=== PATIENT | male | born 1985 | race Caucasian/White ===

== ENCOUNTER 2022-07-13 07:07 | Day surgery (SDC) | payer OTHER, SELFPAY ==
[2022-07-06 10:29] VITALS: BMI 29.7
--- NOTE | 2022-07-12 11:58 | P.CONAN_ITS ---
Documented by User: Aleksandra Sanders NP 07/12/22 11:58 HPI - Anesthesia Eval Consult details Narrative: 37yo M for Right Excision Lipoma of back [facility] Active Problems Active Problems: All Active Problems (Updated 07/05/22 @ 15:34 by Tegan Rosales RN) Lipoma of back (Acute) Past Medical History Medical History (Updated 07/13/22 @ 07:38 by Mary Smyth RN) Hypothyroid Thyroid storm Surgical History Surgical History H/O thyroidectomy Social History Social History Household Members: Significant Other Housing: House Alcohol intake: never Patient Tobacco Use Status: Former Tobacco user Quit Date: 2010 Use of substances other than those prescribed or required for medical reasons: Yes Substance Use Type: Marijuana Substance Use Type Other:: daily Are you DNR?: No Advance Directives: No Advance Directives Information Provided: Yes Meds Allergies Allergy/AdvReac Type Severity Reaction Status Date / Time No Known Allergies Allergy Verified 06/21/22 11:28 Home Medications Medication Instructions Recorded Confirmed Last Taken Type hydroxyzine pamoate 25 mg capsule 25 mg PO DAILY PRN Anxiety 06/21/22 06/21/22 07/13/22 History levothyroxine 137 mcg tablet 137 mcg PO DAILY 06/21/22 06/21/22 07/13/22 History (Levoxyl) Exam Exam Date and Time: July 12, 2022 1158 Height,Weight and Vital Signs: Height 5 ft 6 in Weight 83.461 kg Assessment and Plan Assessment Anesthesia Assessment: Chart Reviewed Documented by User: Vincenzo Ann MD 07/13/22 09:32 [facility] Past Medical History Medical History (Updated 07/13/22 @ 07:38 by Mary Smyth RN) Hypothyroid Thyroid storm Family History Family history of problems with anesthesia: No Surgical History Surgical History H/O thyroidectomy History of Problems with Anesthesia: No Social History Social History Household Members: Significant Other Housing: House Alcohol intake: never Patient Tobacco Use Status: Former Tobacco user Quit Date: 2010 Use of substances other than those prescribed or required for medical reasons: Yes Substance Use Type: Marijuana Substance Use Type Other:: daily Are you DNR?: No Advance Directives: No Advance Directives Information Provided: Yes Meds Allergies Allergy/AdvReac Type Severity Reaction Status Date / Time No Known Allergies Allergy Verified 06/21/22 11:28 Home Medications Medication Instructions Recorded Confirmed Last Taken Type hydroxyzine pamoate 25 mg capsule 25 mg PO DAILY PRN Anxiety 06/21/22 06/21/22 07/13/22 History levothyroxine 137 mcg tablet 137 mcg PO DAILY 06/21/22 06/21/22 07/13/22 History (Levoxyl) Exam Airway Mallampati Class: I TM Dist: >3cm Neck ROM: Full Loose/Missing/Broken Teeth: No Heart: ok Lungs: ok Assessment and Plan Final Anesthetic Review Family History of Problems with Anesthesia: No History of Problems with Anesthesia: No NPO: Yes ASA Class: II Final Preanesthetic Review: No Changes in Pt Med Stat, Meds/Allgs Chart Reviewed, Consent Obtained/Reviewed and Anes Risks/Benef Reviewed Patient Risk: Low Procedure Risk: Low Anesthetic Plan Anesthetic Plan: GA and Agree w/ Assess. and Plan Disposition: Standard PACU
[2022-07-13] VITALS (8 sets, daily range): BP systolic 114–138; BP diastolic 71–90; PULSE 57–72; RESP 16–18; TEMP 36.2–36.9; O2SAT 95–98; BMI 31.2
[2022-07-13] MEDS: Lactated Ringers 1,000 ML 100 ML IVCONT (07:53)
--- NOTE | 2022-07-13 09:12 | P.OP_ITS ---
Operative Note Operative Note Date of Service: 07/13/22 Narrative: Preop diagnosis: [Symptomatic lipoma, right flank] Postop diagnosis: [] Procedure: [] Surgeon: Jero Sam MD Assist: [none] Anesthesia: [General via LMA; local Ropivicaine, 0.5%] Estimated blood loss: [3cc] Specimen: [Right flank lipoma, 5x6cm] Intraoperative findings: [Lipoma was deep to the latissimus fascia and in the latissimus dorsi muscle require an intermediate closure of a 8 cm incision] Indications: [The patient is a 37-year-old gentleman with no significant past medical history who is a large symptomatic lipoma measuring approximately 5 x 6cm on his right flank and there have been no prior attempts at excision. Given that it is symptomatic and interfering with sleep and activity, I recommended excision. I reviewed the inherent risks of bleeding, infection, recurrence, seroma and other complications that could require another procedure. The option of seeing a cosmetic surgeon for consideration of liposuction was also reviewed and declined by the patient patient seemed understand his options and wanted to proceed.] Procedure: [The patient was identified in preoperative holding area by myself in the operative site marked by myself. He voided his urinary bladder radiation therapy technologist, receive sequential compression stockings and Ancef, 2 g. He was brought into the OR operating suite and placed prone on the table and after induction, general anesthesia via LMA was provided. The operative site was widely prepped and draped in the usual manner for surgery using chlorhexidine. An appropriate timeout confirming the lipoma and the side and procedure was performed. Preemptive local was infiltrated into the skin and subcutaneous tissues and a transverse 8 cm incision made sharply and carried into the subcutaneous tissues using electrocautery for hemostasis. The latissimus muscle was identified and the lipoma was deep to the fascia. Given this, the latissimus fascia was opened and the lipoma clearly demonstrated itself around the latissimus muscle fibers. The lipoma was extirpated and sent for permanent section. Hemostasis was obtained with electrocautery and the pocket closed using loose 2 0 Polysorb sutures to approximate the muscle. The fascia was then closed with interrupted 2-0 Polysorb sutures, deep dermal sutures of 3-0 Polysorb and 4-0 Monocryl subcuticular sutures completed the closure. The area was then washed and dried, Mastisol and Steri-Strips applied followed by sterile dressing. Patient tolerated the procedure well and was sent extubated the recovery in stable condition, all sponge instrument counts were correct. At the patient's request, I contacted his girlfriend Trinidad at [phone] and apprised her of the operation, pain management and instructions. Her questions seemed to be satisfactorily answered.]
--- NOTE | 2022-07-13 09:12 | MHC.SHP ---
Pre-Procedural Eval Section A Date of Service: 07/13/22 The patient is an INPATIENT: No The History & Physical has been completed within 30 days and I have reviewed it.: Yes Section B Chief Complaint: Benign lipomatous neoplasm of skin Allergies: Allergies Allergy/AdvReac Type Severity Reaction Status Date / Time No Known Allergies Allergy Verified 06/21/22 11:28 Plan I have reviewed the history and physical and performed a pertinent physical examination on my patient. No changes have occurred unless specified.
== END 2022-07-13 12:19 | disposition home or self-care (01) ==
LOC: HO.SSS 07:08
PROVIDERS: PCP Student in an Organized Health Care Education/Training Program; Visit Provider Surgery
PROC: (CPT 21933; principal; 2022-07-13 08:40)
DX: D17.1 Benign lipomatous neoplasm of skin and subcutaneous tissue of trunk (principal); E89.0 Postprocedural hypothyroidism; Z79.899 Other long term (current) drug therapy; Z87.891 Personal history of nicotine dependence; F12.90 Cannabis use, unspecified, uncomplicated
CPT/HCPCS: 21933; 88304; J0690; J1100; J1885; J2250; J2405; J2795; J3010

== ENCOUNTER 2023-08-16 10:31 | Outpatient (REF) | payer OTHER, SELFPAY ==
[2023-08-16 14:52] LABS: Alanine Aminotransferase 29 U/L (0-40); Albumin Level 4.4 g/dL (3.5-5.0); Alkaline Phosphatase 65 U/L (39-117); Aspartate Amino Transferase 32 U/L (5-37); Bilirubin Direct 0.2 mg/dL (0.0-0.5); Bilirubin Total 0.6 mg/dL (0.0-1.0); Cholesterol 169 mg/dL (<200); HDL Cholesterol 41 mg/dL (>40); LDL Cholesterol Calculated 95 mg/dL (<100); Total Protein 7.5 g/dL (6.5-8.0); Triglycerides 165 mg/dL (<150)
[2023-08-16 15:08] LABS: Thyroid Stimulating Hormone 5.72 uIU/mL (0.32-4.0)
[2023-08-22 17:09] LABS: HIV RNA PCR Qn Copies Not Detected Copies/mL; HIV RNA PCR Qn Log Copies Not Detected Log cps/mL
== END 2023-08-16 10:32 | disposition home or self-care (01) ==
LOC: HO.CHCLDS 10:31
PROVIDERS: Visit Provider Student in an Organized Health Care Education/Training Program
DX: Z00.00 Encounter for general adult medical examination without abnormal findings (principal); E05.00 Thyrotoxicosis with diffuse goiter without thyrotoxic crisis or storm
CPT/HCPCS: 36415; 80061; 80076; 84443; 87536; 87900

== ENCOUNTER 2025-02-03 09:32 | Outpatient (REF) | payer OTHER, SELFPAY ==
--- OUTSIDE RECORDS SUMMARY | 2025-02-03 10:33 | XMS_ITS | Encounter Summary ---
Author Organization [employer] Address [address] [place] [address] [address] [place] [address] Care Team Providers Care Hospitality Director Name Role Phone Pia Clements MD Primary Care Provider [phone] Reason for Visit * Reason Onset Date Comments Nurse Triage 01/26/2025 Encounter Details Date Type Department Care Team ([facility] st Contact Info) Description 01/26/2025 Telephone [facility] [address] [place] [address] Pia Clements MD [address] [place] [address] Nurse Triage Social History Tobacco Use Types Packs/Day Years Used Date Smoking Tobacco: Never Smokeless Tobacco: Never Depression Answer Date Recorded Patient Health Questionnaire-9 Score 9 05/19/2024 Patient Health Questionnaire-9 Score 9 05/19/2024 Last PHQ-9: Questionnaire Data Not on file 0 05/19/2024 Housing Stability Answer Date Recorded What is your housing situation today? I have andry do 08/16/[address] you li ve. Do you have problems with any of the following? None of the above 08/16/2023 Food Insecurity Answer Date Recorded Within the past 12 months, y ou worried that your food would run out before you got money to buy more: Never True 08/16/2023 Within the past 12 months,th e food you bought just didn't last and you didn't have enough money to get more: Never True Transportation Answer Date Recorded In the past 12 months, has l ack of transportation kept you from medical appts, meetings, work or from getting things needed for daily living? No 08/16/2023 Utilities Answer Date Recorded In the past 12 months, has t he electric, gas, oil or water company threatened to shut off services in your home? No 08/16/2023 Depression Answer Date Recorded Patient Health Questionnaire-2 Score 0 05/19/2024 Sex and Gender Information Value Date Recorded Sex Assigned at Male 06/26/2022 10:31 AM EDT Legal Sex Male 10:31 AM EDT Gender Identity Male 06/26/2022 10:31 AM EDT Sexual Orientation Choose not to disclose 2021 10:31 AM EDT documented as of this encounter Miscellaneous Notes * Telephone Encounter - Angelina Marroquin RN - 01/26/2025 12:34 PM EDT Triage call Pt reports some anxiety recently and feels it is due to thyroid levels. Pt reports anxiety comes for no reason when thyroid is not functioning properly. Pt reports other symptoms of headache and getting sick too much. Pt is requesting to see PCP for possible lab check and to talk to about symptoms. ASK apt with Dr. Mancilla 02/03/25 @ 900am. Pt agrees with disposition and insurance is verified as active prior to booking. Protocol Used: Anxiety and Panic Attack (Adult) Protocol-Based Disposition: See in Office or Video Visit within 2 Weeks Video visit not offered Positive Triage Question: * Symptoms of anxiety or panic attack and is a chronic symptom (recurrent or ongoing AND present > 4 weeks) * All higher-acuity triage questions were negative Care Advice Discussed: * Note to Triager - Anxiety Symptoms * Reasons To Call Back - Anxiety or panic attacks continue - You feel like harming yourself - You become worse * Telephone Encounter - Maylin Gates - 01/26/2025 11:29 AM EDT Symptoms: Anxiety or Panic Attack, Headache, Dizziness Outcome: Schedule an urgent appointment (within 4 hours) or talk to a nurse or provider soon Reason: Started within the past 3 days The caller accepted this outcome. documented in this encounter Plan of Treatment Upcoming Encounters Date Type Department Care Team (Late st Contact Info) Description 04/10/2025 10:45 AM EDT Office Visit [facility] [address] [place] [address] Pia Clements MD [address] [place] [address] documented as of this encounter Visit Diagnoses Not on filedocumented in this encounter Additional Health Concerns Assessment Noted Time PHQ-9 Depression Total Score: 9 05/19/20 24 2:44 PM EDT documented as of this encounter Care Teams Hospitality Director Relationship Specialty Start Date End Date Pia Clements MD [address] [place] [id number] PCP - General Family Medicine 08/27/18 documented as of this encounter
[2025-02-03 14:43] LABS: Alanine Aminotransferase 46 U/L (0-40); Albumin Level 4.5 g/dL (3.5-5.0); Alkaline Phosphatase 67 U/L (39-117); Anion Gap 12 (12-20); Aspartate Amino Transferase 39 U/L (5-37); Bilirubin Direct 0.2 mg/dL (0.0-0.5); Bilirubin Total 0.8 mg/dL (0.0-1.0); Blood Urea Nitrogen 24 mg/dL (9-16); Calcium 9.3 mg/dL (8.4-10.2); Carbon Dioxide 24 mmol/L (22-29); Chloride 105 mmol/L (96-108); Cholesterol 190 mg/dL (<200); Estimated Glomerular Filt Rate > 60; Glucose Random 81 mg/dL (60-115); HDL Cholesterol 42 mg/dL (>40); LDL Cholesterol Calculated 132 mg/dL (<100); Potassium 3.7 mmol/L (3.3-5.1); Sodium 137 mmol/L (135-145); Total Protein 7.4 g/dL (6.5-8.0); Triglycerides 80 mg/dL (<150)
[2025-02-03 15:05] LABS: TSH reflex Free T4 3.27 uIU/mL (0.32-4.0)
== END 2025-02-03 09:33 | disposition home or self-care (01) ==
LOC: HO.CHCLDS 09:32
PROVIDERS: Visit Provider Internal Medicine
DX: F41.9 Anxiety disorder, unspecified (principal); E05.00 Thyrotoxicosis with diffuse goiter without thyrotoxic crisis or storm; R74.01 Elevation of levels of liver transaminase levels
CPT/HCPCS: 36415; 80048; 80061; 80076; 84443

== ENCOUNTER 2025-03-31 11:52 | Outpatient (REF) | payer OTHER, SELFPAY ==
--- OUTSIDE RECORDS SUMMARY | 2025-03-31 12:42 | XMS_ITS | Clinical Summary ---
Author Organization [email or web address] [facility] it Address [address] [place] [address] Care Team Providers Care Agricultural Equipment Salesperson Name Role Phone Unavailable Primary Care Provider Unavailabl e Social History Tobacco Use Types Packs/Day Years Used Date Smoking Tobacco: Never Assessed Sex and Gender Information Value Date Recorded Sex Assigned at Not on file Legal Sex Male 4:16 AM EST Gender Identity Not on file Sexual Orientation Not on file Plan of Treatment Health Maintenance Due Date Last Done Comments DTaP,Tdap,and Td Vaccines (1 - Tdap) 2005 Hepatitis B Vaccines (1 of 3 - 19+ 3-dose series) 2005 COVID-19 Vaccine (2023-2 5 season) 2024 Depression Screening 08/27/2024 Influenza Vaccine (#1) 2025 HIB Vaccines Aged Out No longer eligi ble based on patient's age to complete this topic HPV Vaccines Aged Out No longer eligi ble based on patient's age to complete this topic Hepatitis A Vaccines Aged Out No long er eligible based on patient's age to complete this topic IPV Vaccines Aged Out No longer eligi ble based on patient's age to complete this topic MMR Vaccines Aged Out No longer eligi ble based on patient's age to complete this topic Meningococcal ACWY Vaccine Aged Out N o longer eligible based on patient's age to complete this topic Meningococcal B Vaccine Aged Out No l onger eligible based on patient's age to complete this topic Pneumococcal Vaccine: Pediat rics (0 to 5 Years) and At-Risk Patients (6 to 49 Years) Aged Out No longer eligible b ased on patient's age to complete this topic RSV Immunization Patients Un rowena 20 months Aged Out No longer eligible b ased on patient's age to complete this topic Varicella Vaccines Aged Out No longer eligible based on patient's age to complete this topic
--- OUTSIDE RECORDS SUMMARY | 2025-03-31 12:42 | XMS_ITS | Encounter Summary ---
Author Organization [email or web address] Address [address] [place] [id number] Care Team Providers Care Natural Science Manager Name Role Phone Pia Clements MD Primary Care Provider [phone] Reason for Visit * Reason Onset Date Comments Med Refill 05/10/2023 Encounter Details Date Type Department Care Team ([facility] st Contact Info) Description 05/10/2023 Telephone [facility] [address] [place], [place] [phone] Pia Clements MD [address] [place] [address] Med Refill Social History Tobacco Use Types Packs/Day Years Used Date Smoking Tobacco: Never Smokeless Tobacco: Never Sex and Gender Information Value Date Recorded Sex Assigned at Male 06/26/2022 10:31 AM EDT Legal Sex Male 10:31 AM EDT Gender Identity Male 06/26/2022 10:31 AM EDT Sexual Orientation Choose not to disclose 2021 10:31 AM EDT documented as of this encounter Miscellaneous Notes * Telephone Encounter - Veronica Sterling - 05/11/2023 3:19 PM EDT Tc from pt requesting status on message below. Pt is concerned to go the weekend without medication. Contact pt at [phone] (icelandic speaker) * Telephone Encounter - Tamia Figueroa LPN - 05/10/2023 2:16 PM EDT Medication is prescribed by Endocrine. * Telephone Encounter - Gil Romero Rogers - 05/10/2023 2:12 PM EDT Tc from pt requesting med refill on Levothyroxine 137 Mcg capsule Please sent to [id number] - [place], [place] - [address] [place] [address] documented in this encounter Plan of Treatment Upcoming Encounters Date Type Department Care Team (Late st Contact Info) Description 04/23/2025 10:15 AM EDT Office Visit [facility] [address] [place] [address] Pia Clements MD [address] [place] [address] documented as of this encounter Visit Diagnoses Not on filedocumented in this encounter Care Teams Natural Science Manager Relationship Specialty Start Date End Date Pia Clements MD [address] [place] [phone] PCP - General Family Medicine 08/27/18 documented as of this encounter
[2025-03-31 14:37] LABS: INTERNATIONAL NORM RATIO 1.1 (0.9-1.1); Prothrombin Time 12.9 SEC (10.9-12.4)
[2025-03-31 14:59] LABS: Iron 83 mcg/dL (45-160); Percent Iron Saturation 37 % (15-50); Total Iron Binding Capacity 226 mcg/dL (228-428); Unsaturated Iron Binding 143 ug/dL
[2025-03-31 15:00] LABS: Ferritin 157 ng/mL (20-250)
[2025-04-01 08:06] LABS: HBS Num1 56.24 mIU/mL (0-7.99); HBc Num1 0.05 S/CO (0.00-0.79); HBsAGNum1 0.43 S/CO (0.00-0.99); Hepatitis A Antibody IgM 0.19 Index (0-0.79); Hepatitis B Surface Antigen Negative (Negative); ~HepC Num1 0.11 S/CO (0.00-0.79); ~Hepatitis A Antibody IgM Nonreactive (Nonreactive); ~Hepatitis B Surface Antibody REACTIVE (Nonreactive); ~Hepatitis C Antibody Nonreactive (Nonreactive)
== END 2025-03-31 11:53 | disposition home or self-care (01) ==
LOC: HO.CHCLDS 11:52
PROVIDERS: Visit Provider Internal Medicine
DX: Z11.59 Encounter for screening for other viral diseases (principal); Z01.84 Encounter for antibody response examination; R74.01 Elevation of levels of liver transaminase levels
CPT/HCPCS: 36415; 82728; 82784; 83540; 85610; 86704; 86706; 86709; 86803; 87340